=== PATIENT | female | born 1990 | race American Indian/Alaskan Native ===

== ENCOUNTER 2019-06-13 16:44 | Emergency (ER) | payer SELFPAY ==
[~2019-06-13] VITALS: Ht 152.4 cm; Wt 59.0 kg
[2019-06-13 17:55] LABS: Alcohol, Urine < 3.0 mg/dL (0-5); Amphetamine Screen, Urine NEGATIVE (NEGATIVE); Barbiturate Scree,Urine NEGATIVE (NEGATIVE); Benzodiazephine Screen, Urine NEGATIVE (NEGATIVE); Cocaine Screen, Urine NEGATIVE (NEGATIVE); Opiate Scree,Urine NEGATIVE (NEGATIVE); Phencyclidine Screen, Urine NEGATIVE (NEGATIVE)
[2019-06-13 18:02] LABS: Cannabinoid Screen, Urine POSITIVE (NEGATIVE)
[2019-06-13 22:55] VITALS: BP 125/85
== END 2019-06-13 23:20 | disposition home or self-care (01) ==
LOC: ER 16:46
DX: R10.9 Unspecified abdominal pain (principal); T74.21XA Adult sexual abuse, confirmed, initial encounter; Y93.89 Activity, other specified; Y99.8 Other external cause status; Y92.89 Other specified places as the place of occurrence of the external cause
CPT/HCPCS: 80307